=== PATIENT | male | born 1950 | race Caucasian/White ===

== ENCOUNTER 2017-07-29 09:50 | Day surgery (SDC) | payer MEDICARE, OTHER ==
[~2017-07-29] VITALS: Ht 177.8 cm; Wt 141.5 kg
[~2017-07-29 09:50] MED LIST: ALLO300 PO; AMLO5; ASPI325; ASPI81EC PO; ATEN100; ATEN100 PO; CEPH500 PO; CHOL10002 PO; CLIN150 PO; CLIN300 PO; CLON.2; CLON.3 PO; COLC.6 PO; DOCU100 PO; FURO80 PO; GLIP10 PO; GLIP10ER; GLIP10ER PO; HYDCHL25; HYDRA25 PO; INSLI100I SC; INSULANI; INSULANI SC; IRON150C PO; Keflex500 MG PO; METF500; METO2.5 PO; MULVITMINF PO; OMEG1CAP30 PO; PARI1 PO; PHENA200 PO; POTCHL10ER PO; POTCHL20ER PO; QUIN10; RXCLIN PO; SULTRIDS PO; SULTRISS PO; TERA5 PO; VALS80; VALS80 PO; VALTURNA; VALTURNA PO; Vibramycin100 MG PO; [UNRECOGNIZED DRUG - CODE]
[2017-07-29] MEDS ORDERED: METO50ER (10:38)
[2017-07-29] MEDS ORDERED: GABA100 (10:39)
[2017-07-29] MEDS ORDERED: LOSA50 PO (10:39)
[2017-07-29] MEDS ORDERED: Humalog100 UNIT/1 (10:40)
[2017-07-29] MEDS ORDERED: INSULANPEN (10:40)
[2017-07-29] MEDS ORDERED: SPIR25 (10:40)
[2017-07-29] MEDS ORDERED: MEGARED OMEGA-1 EAC1 (10:42)
[2017-07-29] MEDS ORDERED: BIOTIN5000 MC1 (10:42)
[2017-07-29] MEDS ORDERED: COLCRYS0.6 MG (10:42)
[2017-07-29] MEDS ORDERED: VITAMIN D32000 UNIT (10:43)
== END 2017-07-29 12:23 | disposition home or self-care (01) ==
LOC: ORSCSDS 09:50
PROVIDERS: Internal Medicine Gastroenterology
PROC: 0DBH8ZX Excision of Cecum, Via Natural or Artificial Opening Endoscopic, Diagnostic (ICD-10-PCS; principal; 2017-07-29 11:15)
DX: Z12.11 Encounter for screening for malignant neoplasm of colon (principal); D12.0 Benign neoplasm of cecum; K57.30 Diverticulosis of large intestine without perforation or abscess without bleeding; G47.33 Obstructive sleep apnea (adult) (pediatric); E11.42 Type 2 diabetes mellitus with diabetic polyneuropathy; E11.22 Type 2 diabetes mellitus with diabetic chronic kidney disease; N18.1 Chronic kidney disease, stage 1; I12.9 Hypertensive chronic kidney disease with stage 1 through stage 4 chronic kidney disease, or unspecified chronic kidney disease; N40.0 Benign prostatic hyperplasia without lower urinary tract symptoms; Z79.82 Long term (current) use of aspirin; Z79.4 Long term (current) use of insulin; Z79.899 Other long term (current) drug therapy; E66.01 Morbid (severe) obesity due to excess calories; Z68.41 Body mass index [BMI] 40.0-44.9, adult
CPT/HCPCS: 82947; 88305; J7120

== ENCOUNTER → 2019-07-18 | Outpatient (CLI) | payer MEDICARE, OTHER ==
[~2019-07-18] MED LIST changes: +ALLO100 PO; +BIOTIN5000 MC1; +COLCRYS0.6 MG; +FERRACTIV IRON1 EACH PO; +GABA100; +Humalog100 UNIT/1; +INSULANPEN; -IRON150C PO; +LOSA50 PO; +MEGARED OMEGA-1 EAC1; +METO50ER PO; +SPIR25 PO; +VITAMIN D32000 UNIT
[2019-07-18 16:06] LABS: Albumin, Blood 2.6 g/dL (3.4-5.0); Anion Gap 7 mmol/L (6-16); Blood Urea Nitrogen 54 mg/dL (8-24); CO2, Blood 27 mmol/L (21-32); Calcium, Blood 8.7 mg/dL (8.5-10.1); Chloride, Blood 101 mmol/L (98-108); Creatinine, Blood 1.59 mg/dL (0.60-1.20); Glomerular Filtration Rate 46 (60-); Glucose, Blood 267 mg/dL (70-99); Phosphorus, Blood 3.9 mg/dL (2.5-4.9); Potassium, Blood 4.6 mmol/L (3.5-5.5); Sodium, Blood 135 mmol/L (136-145)
== END | disposition home or self-care (01) ==
LOC: LAB SHORT 12:51 → OLS 12:51
PROVIDERS: Internal Medicine Nephrology
DX: I25.118 Atherosclerotic heart disease of native coronary artery with other forms of angina pectoris (principal)
CPT/HCPCS: 80069; 85018

== ENCOUNTER → 2019-07-22 | Outpatient (CLI) | payer MEDICARE, OTHER ==
[2019-07-22 15:51] LABS: Albumin, Blood 3.2 g/dL (3.4-5.0); Anion Gap 10 mmol/L (6-16); Blood Urea Nitrogen 74 mg/dL (8-24); Bun/Creatinine Ratio 35.9 (12.0-20.0); CO2, Blood 25 mmol/L (21-32); Calcium, Blood 9.6 mg/dL (8.5-10.1); Chloride, Blood 95 mmol/L (98-108); Creatinine, Blood 2.06 mg/dL (0.60-1.20); Glomerular Filtration Rate 34 (60-); Glucose, Blood 299 mg/dL (70-99); Phosphorus, Blood 3.7 mg/dL (2.5-4.9); Potassium, Blood 4.3 mmol/L (3.5-5.5); Sodium, Blood 130 mmol/L (136-145)
== END | disposition home or self-care (01) ==
LOC: LAB SHORT 13:25 → LAB 13:25
PROVIDERS: Internal Medicine Nephrology
DX: N18.3 Chronic kidney disease, stage 3 (moderate) (principal)
CPT/HCPCS: 80069

== ENCOUNTER → 2019-07-29 | Outpatient (CLI) | payer MEDICARE, OTHER ==
[2019-07-29 12:25] LABS: Albumin, Blood 3.3 g/dL (3.4-5.0); Anion Gap 9 mmol/L (6-16); Blood Urea Nitrogen 108 mg/dL (8-24); Bun/Creatinine Ratio 48.4 (12.0-20.0); CO2, Blood 28 mmol/L (21-32); Calcium, Blood 9.4 mg/dL (8.5-10.1); Chloride, Blood 96 mmol/L (98-108); Creatinine, Blood 2.23 mg/dL (0.60-1.20); Glomerular Filtration Rate 31 (60-); Glucose, Blood 236 mg/dL (70-99); Magnesium, Blood 2.4 mg/dL (1.6-2.4); Phosphorus, Blood 4.5 mg/dL (2.5-4.9); Potassium, Blood 4.6 mmol/L (3.5-5.5); Sodium, Blood 133 mmol/L (136-145)
== END | disposition home or self-care (01) ==
LOC: LAB 11:00 → LAB SHORT 11:00
PROVIDERS: Internal Medicine Nephrology
DX: N18.3 Chronic kidney disease, stage 3 (moderate) (principal); D63.1 Anemia in chronic kidney disease
CPT/HCPCS: 80069; 83735; 85018

== ENCOUNTER → 2019-08-10 | Outpatient (CLI) | payer MEDICARE, OTHER ==
[2019-08-10 12:17] LABS: Albumin, Blood 3.5 g/dL (3.4-5.0); Albumin/Globulin Ratio 0.9 (0.8-1.8); Bilirubin, Total 0.4 mg/dL (0.1-1.0); Bun/Creatinine Ratio 36.6 (12.0-20.0); Calcium, Blood 9.3 mg/dL (8.5-10.1); Creatinine, Blood 1.64 mg/dL (0.60-1.20); Magnesium, Blood 2.1 mg/dL (1.6-2.4); Potassium, Blood 3.9 mmol/L (3.5-5.5); Total Protein, Blood 7.5 g/dL (6.4-8.2)
== END | disposition home or self-care (01) ==
LOC: LAB 11:50 → LAB SHORT 11:50
PROVIDERS: Internal Medicine Nephrology
DX: Z48.812 Encounter for surgical aftercare following surgery on the circulatory system (principal); I25.10 Atherosclerotic heart disease of native coronary artery without angina pectoris; E11.22 Type 2 diabetes mellitus with diabetic chronic kidney disease; N18.9 Chronic kidney disease, unspecified; Z95.1 Presence of aortocoronary bypass graft; Z79.4 Long term (current) use of insulin
CPT/HCPCS: 80053; 83735; 85018

== ENCOUNTER → 2021-08-03 | Outpatient (CLI) | payer MEDICARE, OTHER ==
[2021-08-03 12:13] LABS: Albumin, Blood 3.8 g/dL (3.4-5.0); Anion Gap 2 mmol/L (6-16); Blood Urea Nitrogen 31 mg/dL (8-24); Bun/Creatinine Ratio 25.4 (12.0-20.0); CO2, Blood 31 mmol/L (21-32); Calcium, Blood 10.4 mg/dL (8.5-10.1); Chloride, Blood 104 mmol/L (98-108); Creatinine, Blood 1.22 mg/dL (0.60-1.20); Glomerular Filtration Rate 63 (60-); Glucose, Blood 106 mg/dL (70-99); Phosphorus, Blood 3.5 mg/dL (2.5-4.9); Potassium, Blood 4.3 mmol/L (3.5-5.5); Sodium, Blood 137 mmol/L (136-145)
[2021-08-03 12:45] LABS: PSA, %Free 15.2 %; PSA, Free 0.792 ng/mL
== END ==
LOC: LAB SHORT 09:13
PROVIDERS: Family Medicine; Internal Medicine Nephrology
DX: E11.21 Type 2 diabetes mellitus with diabetic nephropathy (principal); E11.42 Type 2 diabetes mellitus with diabetic polyneuropathy; E11.39 Type 2 diabetes mellitus with other diabetic ophthalmic complication; E11.22 Type 2 diabetes mellitus with diabetic chronic kidney disease; N18.30 Chronic kidney disease, stage 3 unspecified; D63.1 Anemia in chronic kidney disease; R97.20 Elevated prostate specific antigen [PSA]
CPT/HCPCS: 36415; 80069; 83036; 84153; 84154; 85018

== ENCOUNTER 2022-01-12 06:31 | Emergency (ER) | payer MEDICARE, OTHER ==
[~2022-01-12] VITALS: Ht 177.8 cm; Wt 132.9 kg
[2022-01-12 07:01] LABS: BASOPHILS ABSOLUTE AUTO 0.05 K/mm3 (0.00-0.23); BASOPHILS PERCENT AUTO 1 % (0-2); EOSINOPHILS ABSOLUTE AUTO 0.09 K/mm3 (0.00-0.68); EOSINOPHILS PERCENT AUTO 1 % (0-6); Hematocrit 40.5 % (37.0-53.0); Hemoglobin 13.9 g/dL (13.5-17.5); IMMATURE GRAN ABSOLUTE AUTO 0.06 K/mm3 (0.00-0.10); IMMATURE GRAN PERCENT AUTO 1 % (0-1); LYMPHOCYTES ABSOLUTE AUTO 0.76 K/mm3 (0.84-5.20); LYMPHOCYTES PERCENT AUTO 10 % (21-46); MONOCYTES ABSOLUTE AUTO 0.72 K/mm3 (0.16-1.47); MONOCYTES PERCENT AUTO 10 % (4-13); Mean Corpuscular HGB 30.2 pg (26.0-34.0); Mean Corpuscular HGB Conc 34.3 g/dL (31.5-36.5); Mean Corpuscular Volume 88 fL (80-100); Mean Platelet Volume 12.5 fL (9.1-12.4); NEUTROPHILS PERCENT AUTO 78 % (41-73); Platelet Count 143 K/mm3 (150-400); RDW Coefficient Variation 14.2 % (11.7-14.2); RDW Standard Deviation 45.4 fL (35.1-46.3); Red Blood Cell Count 4.61 M/mm3 (4.30-5.90); White Blood Cell Count 7.48 K/mm3 (4.00-11.30)
[2022-01-12 07:14] LABS: Albumin, Blood 3.5 g/dL (3.4-5.0); Bilirubin, Total 0.5 mg/dL (0.1-1.0); Bun/Creatinine Ratio 17.6 (12.0-20.0); Calcium, Blood 9.8 mg/dL (8.5-10.1); Creatinine, Blood 1.25 mg/dL (0.60-1.20); Globulin, Blood 3.6 g/dL (2.2-4.0); Potassium, Blood 4.3 mmol/L (3.5-5.5); Total Protein, Blood 7.1 g/dL (6.4-8.2)
== END 2022-01-12 09:57 | disposition home or self-care (01) ==
LOC: ER 06:31
PROVIDERS: Student in an Organized Health Care Education/Training Program
DX: R07.89 Other chest pain (principal); I10 Essential (primary) hypertension; E11.9 Type 2 diabetes mellitus without complications; I25.10 Atherosclerotic heart disease of native coronary artery without angina pectoris; Z95.1 Presence of aortocoronary bypass graft; Z79.899 Other long term (current) drug therapy; Z79.82 Long term (current) use of aspirin; Z79.4 Long term (current) use of insulin; Z88.2 Allergy status to sulfonamides; Z88.1 Allergy status to other antibiotic agents
CPT/HCPCS: 71045; 80053; 84484; 85025; 93005; 93010

== ENCOUNTER 2022-10-03 11:21 | Emergency (ER) | payer MEDICARE, OTHER ==
[~2022-10-03] VITALS: Ht 177.8 cm; Wt 129.3 kg
[~2022-10-03 11:21] MED LIST changes: +ASPI325 PO
[2022-10-03] MEDS ORDERED: TAMS.4ER PO (11:46)
[2022-10-03] MEDS ORDERED: DILT180 PO (11:46)
[2022-10-03] MEDS ORDERED: INSULANI SC (11:47)
[2022-10-03] MEDS ORDERED: BUME2 PO (11:47)
[2022-10-03] MEDS ORDERED: ATOR20 PO (11:47)
[2022-10-03 14:00] VITALS: BP 102/80
[2022-10-03] MEDS ORDERED: Norco 5-325 Ta1 EACH PO (14:18)
[2022-10-03] MEDS ORDERED: Robaxin750 MG PO (14:18)
== END 2022-10-03 15:29 | disposition home or self-care (01) ==
LOC: ER 11:21
DX: S39.011A Strain of muscle, fascia and tendon of abdomen, initial encounter (principal); I25.10 Atherosclerotic heart disease of native coronary artery without angina pectoris; I12.9 Hypertensive chronic kidney disease with stage 1 through stage 4 chronic kidney disease, or unspecified chronic kidney disease; E11.22 Type 2 diabetes mellitus with diabetic chronic kidney disease; N18.9 Chronic kidney disease, unspecified; Z88.2 Allergy status to sulfonamides; Z88.1 Allergy status to other antibiotic agents; Z79.82 Long term (current) use of aspirin; Z79.4 Long term (current) use of insulin; Z79.899 Other long term (current) drug therapy; X58.XXXA Exposure to other specified factors, initial encounter
CPT/HCPCS: 73502; 96372; 99283-25; A9270; J1885; J3010

== ENCOUNTER 2023-04-03 14:49 | Emergency (ER) | payer MEDICARE, OTHER ==
[~2023-04-03] VITALS: Ht 177.8 cm; Wt 127.0 kg
[~2023-04-03 14:49] MED LIST changes: +ATOR20 PO; +BUME2 PO; +DILT180 PO; +Norco 5-325 Ta1 EACH PO; +Robaxin750 MG PO; +TAMS.4ER PO
[2023-04-03 15:42] VITALS: BP 113/50
== END 2023-04-03 19:43 | disposition home or self-care (01) ==
LOC: ER 14:49
DX: S93.402A Sprain of unspecified ligament of left ankle, initial encounter (principal); E11.9 Type 2 diabetes mellitus without complications; I10 Essential (primary) hypertension; X50.1XXA Overexertion from prolonged static or awkward postures, initial encounter; Z88.2 Allergy status to sulfonamides; Z88.1 Allergy status to other antibiotic agents; Z88.8 Allergy status to other drugs, medicaments and biological substances; Z79.82 Long term (current) use of aspirin; Z79.899 Other long term (current) drug therapy; Z79.4 Long term (current) use of insulin
CPT/HCPCS: 73610; 73620; 99285-25

== ENCOUNTER 2024-11-18 11:06 | Inpatient (IN) | payer MEDICARE, OTHER ==
[~2024-11-18] VITALS: Ht 177.8 cm; Wt 141.0 kg
[~2024-11-18 11:06] MED LIST changes: -GABA100; +GABA100 PO; +HUMALOG100 UNIT/1; -Humalog100 UNIT/1; +LOSA25 PO; -LOSA50 PO
[2024-11-18] MEDS ORDERED: HYDROmorphone HCl/Pf 1MG SYR IV ONE ×2 (11:45→12:30)
[2024-11-18] MEDS ORDERED: Ondansetron HCl 2 MG / ML 2ML Vial IV ONE (11:45)
[2024-11-18] MEDS ORDERED: CeFAZolin Sodium 1,000 MG in NS 50 ML IV ONE (13:00)
[2024-11-18 13:44] LABS: BASOPHILS ABSOLUTE AUTO 0.07 K/mm3 (0.00-0.23); BASOPHILS PERCENT AUTO 1 % (0-2); EOSINOPHILS ABSOLUTE AUTO 0.13 K/mm3 (0.00-0.68); EOSINOPHILS PERCENT AUTO 2 % (0-6); Hematocrit 35.3 % (37.0-53.0); Hemoglobin 11.9 g/dL (13.5-17.5); IMMATURE GRAN ABSOLUTE AUTO 0.04 K/mm3 (0.00-0.10); IMMATURE GRAN PERCENT AUTO 1 % (0-1); LYMPHOCYTES ABSOLUTE AUTO 0.69 K/mm3 (0.84-5.20); LYMPHOCYTES PERCENT AUTO 8 % (21-46); MONOCYTES ABSOLUTE AUTO 0.88 K/mm3 (0.16-1.47); MONOCYTES PERCENT AUTO 11 % (4-13); Mean Corpuscular HGB Conc 33.7 g/dL (31.5-36.5); Mean Corpuscular Volume 92 fL (80-100); NEUTROPHILS ABSOLUTE AUTO 6.36 K/mm3 (1.96-9.15); NEUTROPHILS PERCENT AUTO 78 % (41-73); NRBC ABSOLUTE 0.00 K/mm3 (0.00-0.02); NRBC Auto 0.0 /100 WBC (0.0-0.2); Platelet Count 143 K/mm3 (150-400); RDW Coefficient Variation 13.4 % (11.7-14.2); RDW Standard Deviation 44.8 fL (35.1-46.3)
[2024-11-18 14:22] LABS: Alanine Aminotransfer (ALT/SGP 18.0 U/L (12-78); Albumin, Blood 3.0 g/dL (3.4-5.0); Albumin/Globulin Ratio 0.9 (0.8-1.8); Anion Gap 6.0 mmol/L (3-11); Aspartate Aminotrans (AST/SGOT 14.0 U/L (12-37); Bilirubin, Total 0.3 mg/dL (0.1-1.0); Blood Urea Nitrogen 19.0 mg/dL (8-24); CO2, Blood 31.0 mmol/L (21-32); Calcium, Blood 9.2 mg/dL (8.5-10.1); Chloride, Blood 102.0 mmol/L (98-108); Creatinine, Blood 1.11 mg/dL (0.60-1.20); Globulin, Blood 3.4 g/dL (2.2-4.0); Glucose, Blood 196.0 mg/dL (70-99); Potassium, Blood 4.3 mmol/L (3.5-5.5); Sodium, Blood 135.0 mmol/L (136-145); Total Protein, Blood 6.4 g/dL (6.4-8.2)
[2024-11-18] MEDS ORDERED: FentaNYL Citrate 50 MCG/ML 2 ML Injection IV PRN (15:10)
[2024-11-18] MEDS ORDERED: Insulin Human Lispro 100 Units/ML 3ML Syringe SC SCH (18:00)
[2024-11-18 18:30] VITALS: BP 153/77
--- NOTE | 2024-11-18 18:42 | NUR ---
ADMIT ER ADMIT WITH OPEN RIGHT ANKLE FX. SPLINTED IN ER. JANEY WRAP APPEARS CDI. RLE ELEVATED ON PILLOWS. ABLE TO WIGGLES TOES. CAP REFILL <3 SECONDS. DENIES N/T. REPORTS PAIN 3/10 AND DENIES NEED FOR MEDICATIONS AT THIS TIME. TELE PLACED SR AT 63 PER CHILD CARE EDUCATION COORDINATOR. VSS. ORIENTED TO ROOM AND CALL LIGHT. WILL REPORT TO LEYLA RN. PT EATING. NPO AT MIDNIGHT FOR SURGERY TOMORROW.
[2024-11-18 19:42] VITALS: BP 134/60
[2024-11-18] MEDS ORDERED: IRON-VITAMIN C1 EAC1 PO (20:17)
[2024-11-18] MEDS ORDERED: OMEGA PO (20:22)
[2024-11-18] MEDS ORDERED: DULO30 PO (20:39)
[2024-11-18] MEDS ORDERED: MAGNESIUM OXID500 MG PO (20:40)
[2024-11-18] MEDS ORDERED: CALCIUM 600-VI1 EAC7 PO (20:43)
[2024-11-18] MEDS ORDERED: PROBIOTIC1 EA13 (20:44)
[2024-11-18] MEDS ORDERED: MIRALAX17 GM PO (20:45)
[2024-11-18] MEDS ORDERED: VITAMIN B-122000 MC1 PO (20:46)
[2024-11-18] MEDS ORDERED: DORZOLAMIDE-TI1 EACH OP (21:21)
[2024-11-18] MEDS ORDERED: OXYC5 PO (21:24)
[2024-11-18 23:17] VITALS: BP 158/68
[2024-11-19] VITALS (15 sets, daily range): BP systolic 131–172; BP diastolic 63–79
[2024-11-19] MEDS ORDERED: CeFAZolin Sodium 2,000 MG in NS 100 ML IV SCH
--- NOTE | 2024-11-19 06:30 | NUR ---
SHIFT SUMMARY PT ADMITTED ON 11/18/24 FOR R OPEN ANKLE FX AFTER FALL. SPLINTED IN ER. JANEY WRAP C/D/I. RLE ELEVATED ON PILLOWS. PT ABLE TO MOVE TOES AND CAP REFILL < 3 SECONDS. PT C/O PAIN THROUGHOUT SHIFT. DR. DAHL NOTIFED. MEDICATED PER EMAR. PT DENIES N/V. PT USES CPAP AT NIGHT. CONTINUOUS BIOX IN PLACE. O2 SAT >90% THROUGHOUT SHIFT. NO TELE EVENTS REPORTED. SINUS RHYTHM RATE 77 PER TREE AND SHRUB WORKER. SURGERY PLANNED TODAY. CARE PLAN ONGOING.
[2024-11-19 07:11] LABS: Anion Gap 5.0 mmol/L (3-11); Blood Urea Nitrogen 23.0 mg/dL (8-24); CO2, Blood 31.0 mmol/L (21-32); Calcium, Blood 9.1 mg/dL (8.5-10.1); Chloride, Blood 103.0 mmol/L (98-108); Creatinine, Blood 1.09 mg/dL (0.60-1.20); Glucose, Blood 161.0 mg/dL (70-99); Potassium, Blood 4.2 mmol/L (3.5-5.5); Sodium, Blood 135.0 mmol/L (136-145)
[2024-11-19] MEDS ORDERED: Insulin Glargine-Yfgn 100 Unit/mL 3 ML SYR SC SCH (09:00)
[2024-11-19] MEDS ORDERED: Colchicine 0.6 MG TAB PO SCH (09:00)
[2024-11-19] MEDS ORDERED: DULoxetine HCL 60 MG Capsule DR PO SCH (09:00)
--- NOTE | 2024-11-19 11:25 | NUR ---
PATIENT TRANSFERED TO [facility] VIA BED ACCOMPANIED BY , AUDI. JANEY WRAP AND SPLINT NOTED TO RLE INTACT.
--- NOTE | 2024-11-19 11:46 | NUR ---
CARE OF PATIENT RESUMED BY GABRIELA FLOREZ RN. REPORT GIVEN.
[2024-11-19] MEDS ORDERED: FentaNYL Citrate 50 MCG/ML 2 ML Injection ONE (12:27)
[2024-11-19] MEDS ORDERED: Midazolam HCl 1MG / ML 2ML Vial ONE (12:27)
[2024-11-19] MEDS ORDERED: Bupivacaine 0.5% HCl 5 MG/ML 30MLVIAL ONE (12:28)
[2024-11-19] MEDS ORDERED: Bupivacaine HCl 0.25% 30 ML Injection ONE (12:28)
[2024-11-19] MEDS ORDERED: Bupivacaine 0.5% W/EPI 1:200000 SDV 30 ML Vial ONE (12:33)
--- NOTE | 2024-11-19 13:06 | NUR ---
1221: Dr. Amanda with Anesthesia at bedside to perform popliteal and adductor nerve blocks in preop. 1238: Timeout complete by RN. Premeds given by Dr. Amanda at bedside. See Anesthesia records. 1243: Adductor nerve block start time. 1246: Adductor nerve block end time. Repositioned pt to side with 3 RN assist for popliteal nerve block. 1300: Popliteal nerve block start time. 1302: Popliteal nerve block end time. VSS throughout. Pt on monitors including: pulse ox, BP, 3 lead EKG. Pt on 3L supplemental O2 via NC. Pt tolerated procedure well.
[2024-11-19] MEDS ORDERED: Ondansetron HCl 2 MG / ML 2ML Vial ONE (13:08)
[2024-11-19] MEDS ORDERED: Rocuronium Bromide 10 MG/ML 5ML Injection IV ONE (13:14)
[2024-11-19] MEDS ORDERED: CeFAZolin Sodium 1000 mg Vial ONE (13:34)
--- NOTE | 2024-11-19 13:50 | NUR ---
11/19/24 1350 Shy Baires 3 GRAMS ANCEF GIVEN BY DR CANAS, SURGEON VERBAL ORDER IN OR NOTED: OPEN AREA X2 TO PTS OPERATIVE SIDE FOOT, AWARE
[2024-11-19] MEDS ORDERED: Sugammadex Sodium 200 MG/2ML SDV (100 MG/ML) ONE (14:16)
--- NOTE | 2024-11-19 15:47 | NUR ---
PT TO ROOM 219 FROM PACU. ALERT TO VERBAL. POST OP VS STARTED AND STABLE. PT ABLE TO WIGGLE TOES. POSTERIOR/STIRRUP? ORTHOGLASS SPLINT IN PLACE. CMS INTACT. WILL CONTINUE TO MONITOR. DENIES PAIN.
[2024-11-19] MEDS ORDERED: Insulin Human Lispro 100 Units/ML 3ML Syringe SC SCH (16:30)
[2024-11-20 00:09] VITALS: BP 178/76
[2024-11-20 04:46] VITALS: BP 160/71
[2024-11-20 05:09] LABS: BASOPHILS ABSOLUTE AUTO 0.05 K/mm3 (0.00-0.23); BASOPHILS PERCENT AUTO 0 % (0-2); EOSINOPHILS ABSOLUTE AUTO 0.03 K/mm3 (0.00-0.68); EOSINOPHILS PERCENT AUTO 0 % (0-6); Hematocrit 32.1 % (37.0-53.0); Hemoglobin 10.5 g/dL (13.5-17.5); IMMATURE GRAN ABSOLUTE AUTO 0.04 K/mm3 (0.00-0.10); IMMATURE GRAN PERCENT AUTO 0 % (0-1); LYMPHOCYTES ABSOLUTE AUTO 0.73 K/mm3 (0.84-5.20); LYMPHOCYTES PERCENT AUTO 6 % (21-46); MONOCYTES ABSOLUTE AUTO 1.78 K/mm3 (0.16-1.47); MONOCYTES PERCENT AUTO 16 % (4-13); Mean Corpuscular HGB Conc 32.7 g/dL (31.5-36.5); Mean Corpuscular Volume 92 fL (80-100); NEUTROPHILS ABSOLUTE AUTO 8.73 K/mm3 (1.96-9.15); NEUTROPHILS PERCENT AUTO 77 % (41-73); NRBC ABSOLUTE 0.00 K/mm3 (0.00-0.02); NRBC Auto 0.0 /100 WBC (0.0-0.2); Platelet Count 131 K/mm3 (150-400); RDW Coefficient Variation 13.4 % (11.7-14.2); RDW Standard Deviation 45.3 fL (35.1-46.3)
--- NOTE | 2024-11-20 05:29 | NUR ---
SHIFT SUMMARY HALEIGH WAS ALERT AND FULLY ORIENTED ON ASSESSMENT. PAIN TO SURGICAL SITE WELL MANAGED, PT PRIMARY PAIN SOURCE IS EXACERBATION OF CHRONIC SHOULDER PAIN PT USING CPAP FOR SLEEP. 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 NO DRAINAGE NOTED TO DRESSING, SENSATION INTACT, PT CAN WIGGLE TOES, CAP REFIL <3 SECONDS. PT DENIES SOB, NAUSEA, OR CHEST PAIN NO ACUTE EVENTS OR NOTED CHANGES TO PT CONDITION TONIGHT. JOEL IN PLACE DRAINING YELLOW URINE TO GRAVITY.
[2024-11-20 05:36] LABS: Anion Gap 8.0 mmol/L (3-11); Blood Urea Nitrogen 20.0 mg/dL (8-24); CO2, Blood 28.0 mmol/L (21-32); Calcium, Blood 8.7 mg/dL (8.5-10.1); Chloride, Blood 102.0 mmol/L (98-108); Creatinine, Blood 1.08 mg/dL (0.60-1.20); Glucose, Blood 151.0 mg/dL (70-99); Potassium, Blood 4.4 mmol/L (3.5-5.5); Sodium, Blood 134.0 mmol/L (136-145)
[2024-11-20 07:04] VITALS: BP 138/66
[2024-11-20] MEDS ORDERED: OXAYDO5 M1 PO (07:09)
[2024-11-20] MEDS ORDERED: Aspir 8181 MG PO (12:14)
[2024-11-20] MEDS ORDERED: BUME1 PO ×2 (12:17→12:19)
[2024-11-20 14:18] VITALS: BP 132/57
--- NOTE | 2024-11-20 18:04 | NUR ---
SHIFT SUMMARY PAINFUL TODAY. UNABLE TO WORK WITH PT TODAY. PRESENTLY IN IMAGING TO R/O CERVICAL/R SHOULDER INJURY.
[2024-11-20 19:46] VITALS: BP 169/72
[2024-11-20 23:02] VITALS: BP 130/68
[2024-11-21] VITALS (7 sets, daily range): BP systolic 96–142; BP diastolic 55–75
--- NOTE | 2024-11-21 04:07 | NUR ---
SHIFT SUMMARY HALEIGH WAS ALERT AND FULLY ORIENTED ON ASSESSMENT. PT PAIN WELL MANAGED THIS SHIFT. PT STATES SENSATION AT BASELINE, CAP REFIL <3 SECONDS TO TOES. PT UNABLE TO WIGGLE TOES, STATES THAT THIS IS CHALLENGING FOR HIM AT BASELINE. CALL FROM TELE TONIGHT, PT HAD A PVC AND CONVERTED TO A-FLUTTER. HOSPITALIST CONTACTED, EKG ORDERED. PT STILL IN A-FLUTTER. PT ASYMPTOMATIC. PT DENIES SOB, NAUSEA OR CHEST PAIN. NO OTHER EVENTS NOTED THIS SHIFT.
[2024-11-21 05:15] LABS: BASOPHILS ABSOLUTE AUTO 0.04 K/mm3 (0.00-0.23); BASOPHILS PERCENT AUTO 0 % (0-2); EOSINOPHILS ABSOLUTE AUTO 0.13 K/mm3 (0.00-0.68); EOSINOPHILS PERCENT AUTO 1 % (0-6); Hematocrit 31.9 % (37.0-53.0); Hemoglobin 10.6 g/dL (13.5-17.5); IMMATURE GRAN ABSOLUTE AUTO 0.04 K/mm3 (0.00-0.10); IMMATURE GRAN PERCENT AUTO 0 % (0-1); LYMPHOCYTES ABSOLUTE AUTO 0.87 K/mm3 (0.84-5.20); LYMPHOCYTES PERCENT AUTO 8 % (21-46); MONOCYTES ABSOLUTE AUTO 1.59 K/mm3 (0.16-1.47); MONOCYTES PERCENT AUTO 15 % (4-13); Mean Corpuscular HGB Conc 33.2 g/dL (31.5-36.5); Mean Corpuscular Volume 92 fL (80-100); NEUTROPHILS ABSOLUTE AUTO 7.95 K/mm3 (1.96-9.15); NEUTROPHILS PERCENT AUTO 75 % (41-73); NRBC ABSOLUTE 0.00 K/mm3 (0.00-0.02); NRBC Auto 0.0 /100 WBC (0.0-0.2); Platelet Count 129 K/mm3 (150-400); RDW Coefficient Variation 13.3 % (11.7-14.2); RDW Standard Deviation 45.1 fL (35.1-46.3)
[2024-11-21 05:50] LABS: Anion Gap 6.0 mmol/L (3-11); Blood Urea Nitrogen 27.0 mg/dL (8-24); CO2, Blood 31.0 mmol/L (21-32); Calcium, Blood 8.8 mg/dL (8.5-10.1); Chloride, Blood 101.0 mmol/L (98-108); Creatinine, Blood 1.29 mg/dL (0.60-1.20); Glucose, Blood 155.0 mg/dL (70-99); Potassium, Blood 4.5 mmol/L (3.5-5.5); Sodium, Blood 133.0 mmol/L (136-145)
[2024-11-21] MEDS ORDERED: NS 250 ML IV PRN (07:55)
--- NOTE | 2024-11-21 09:00 | NUR ---
Pt laying in bed wakes easily a/ox4, pleasant and cooperative with care, follows commands well, reports pain is ok when not moving, lungs are clear t/o, resp even and unlabored, on 2 liters at this time, it was shut off but when he dozed he dropped to 87%, no cough, hrr, tele in place running sr, he converted to sr from aflutter at 0715 this am, vs stable, afebrile, piv to lac site is clear and patent, btx4, abd flat soft nontender, voids via shin cath at this time, urine is clear yellow, no bm since last , the , skin has dressing to r ft/ankle, otherwise c/w/d, unable to lift right arm states his shoulder is too painful, is bedrest at this time, evelin, call light in reach.
[2024-11-21] MEDS ORDERED: Insulin Glargine-Yfgn 100 Unit/mL 3 ML SYR SC SCH (09:40)
[2024-11-21] MEDS ORDERED: Polyethylene Glycol 3350 17 gm PO SCH (10:10)
--- NOTE | 2024-11-21 18:20 | NUR ---
pt has been painful today, mechelle his right shoulder, spouce states he fell on it in the shower, it is swollen, hand is swollen, can't stand it to be touched, PT worked with him and expressed concern about not being able to move arm at all, notified Dr. Noble, recieved order for CT of right shoulder, notified pt and family, no further changes this shift. call light in reach.
[2024-11-22] VITALS (8 sets, daily range): BP systolic 141–207; BP diastolic 64–93
[2024-11-22] MEDS ORDERED: Heparin Sodium,Porcine 5,000 UNIT/0.5 ML SDV SC SCH
--- NOTE | 2024-11-22 05:17 | NUR ---
NOC SUMMARY- PT CONTINUES TO C/O RIGHT SHOULDER PAIN. PT REPORTS HE IS ABLE TO MOVE R ARM MORE THIS AM. PT DOES HAVE INCREASED WEAKNESS THROUGHOUT. PT DRESSING IS C/D/I. PT JOEL DRAINING TO GRAVITY. BOWEL CARE MEDS GIVEN ORDERED. PT USING CPAP TOLERATED. PT STATES HIS FACE GETS TO HOT. PT PLCED ON NC @ 2LPM. SPO2 > 90%. CALL LIGHT IN REACH.
[2024-11-22 06:42] LABS: BASOPHILS ABSOLUTE AUTO 0.05 K/mm3 (0.00-0.23); BASOPHILS PERCENT AUTO 1 % (0-2); EOSINOPHILS ABSOLUTE AUTO 0.24 K/mm3 (0.00-0.68); EOSINOPHILS PERCENT AUTO 3 % (0-6); Hematocrit 30.7 % (37.0-53.0); Hemoglobin 10.1 g/dL (13.5-17.5); IMMATURE GRAN ABSOLUTE AUTO 0.05 K/mm3 (0.00-0.10); IMMATURE GRAN PERCENT AUTO 1 % (0-1); LYMPHOCYTES ABSOLUTE AUTO 0.66 K/mm3 (0.84-5.20); LYMPHOCYTES PERCENT AUTO 7 % (21-46); MONOCYTES ABSOLUTE AUTO 1.22 K/mm3 (0.16-1.47); MONOCYTES PERCENT AUTO 13 % (4-13); Mean Corpuscular HGB Conc 32.9 g/dL (31.5-36.5); Mean Corpuscular Volume 92 fL (80-100); NEUTROPHILS ABSOLUTE AUTO 6.89 K/mm3 (1.96-9.15); NEUTROPHILS PERCENT AUTO 76 % (41-73); NRBC ABSOLUTE 0.00 K/mm3 (0.00-0.02); NRBC Auto 0.0 /100 WBC (0.0-0.2); Platelet Count 148 K/mm3 (150-400); RDW Coefficient Variation 13.3 % (11.7-14.2); RDW Standard Deviation 45.0 fL (35.1-46.3)
[2024-11-22 07:02] LABS: Anion Gap 9.0 mmol/L (3-11); Blood Urea Nitrogen 32.0 mg/dL (8-24); CO2, Blood 28.0 mmol/L (21-32); Calcium, Blood 8.9 mg/dL (8.5-10.1); Chloride, Blood 102.0 mmol/L (98-108); Creatinine, Blood 1.18 mg/dL (0.60-1.20); Glucose, Blood 182.0 mg/dL (70-99); Potassium, Blood 4.5 mmol/L (3.5-5.5); Sodium, Blood 134.0 mmol/L (136-145)
[2024-11-22] MEDS ORDERED: Dorzolamide/Timolol Opth Soln 10 ML RIGHTEYE SCH (09:00)
[2024-11-22] MEDS ORDERED: Insulin Glargine-Yfgn 100 Unit/mL 3 ML SYR SC SCH (09:00)
[2024-11-22] MEDS ORDERED: Timolol 0.5% Opth Soln 5 ML RIGHTEYE SCH (09:00)
[2024-11-22] MEDS ORDERED: HydrALAZINE HCl 20 MG / ML 1ML Vial IV PRN ×2 (15:40)
--- NOTE | 2024-11-22 18:27 | NUR ---
SHIFT SUMMARY PATIENT IS POD3 R ANKLE ORIF. SLPINT AND JANEY WRAP INTACT. ON TELE WITH SR IN 50S, BP ELEVATED THIS EVENING AND HYDRALAZINE ORDERED. PATIENT IS CURRENT MAX 2-3 FOR REPOSITIONING AND WILL NEED LIFT FOR TRANSFERS. ONLY EOB WITH PT THIS AFTERNOON. NO BM THIS SHIFT, REPOSITIONED AND TRIED BEDPAN, BED BATH AND CATH CARE THIS AFTERNOON. JOEL TO GRAVITY DRAINING CLEAR YELLOW URINE. BP 149/80. USES CPAP WITH O2 BLEED IN AT NIGHT. CALL LIGHT IN REACH.
[2024-11-23] VITALS (7 sets, daily range): BP systolic 129–165; BP diastolic 59–98
--- NOTE | 2024-11-23 05:48 | NUR ---
NOC SUMMARY- PAIN MANAGED WELL. PT DRESSING IS C/D/I. PT REPORTS RIGHT SHOULDER AND NECK DISCOMFORT. PT TOLERATING PO FLUIDS. JOEL DRAINING TO GRAVITY. PT REPOSITIONED TOLERATED. BOWEL CARE GIVEN ORDERED. PT WEARS CPAP OFF AND ON. PT TOLERATES NC @ 2LPM WELL WITH SPO2 >90%. PT HAS BEEN ABLE TO REST COMFORTABLY. CALL LIGHT IN REACH.
[2024-11-23 10:51] LABS: BASOPHILS ABSOLUTE AUTO 0.04 K/mm3 (0.00-0.23); BASOPHILS PERCENT AUTO 1 % (0-2); EOSINOPHILS ABSOLUTE AUTO 0.23 K/mm3 (0.00-0.68); EOSINOPHILS PERCENT AUTO 3 % (0-6); Hematocrit 32.0 % (37.0-53.0); Hemoglobin 10.7 g/dL (13.5-17.5); IMMATURE GRAN ABSOLUTE AUTO 0.07 K/mm3 (0.00-0.10); IMMATURE GRAN PERCENT AUTO 1 % (0-1); LYMPHOCYTES ABSOLUTE AUTO 0.56 K/mm3 (0.84-5.20); LYMPHOCYTES PERCENT AUTO 7 % (21-46); MONOCYTES ABSOLUTE AUTO 0.95 K/mm3 (0.16-1.47); MONOCYTES PERCENT AUTO 12 % (4-13); Mean Corpuscular HGB Conc 33.4 g/dL (31.5-36.5); Mean Corpuscular Volume 91 fL (80-100); NEUTROPHILS ABSOLUTE AUTO 6.06 K/mm3 (1.96-9.15); NEUTROPHILS PERCENT AUTO 77 % (41-73); NRBC ABSOLUTE 0.00 K/mm3 (0.00-0.02); NRBC Auto 0.0 /100 WBC (0.0-0.2); Platelet Count 162 K/mm3 (150-400); RDW Coefficient Variation 13.3 % (11.7-14.2); RDW Standard Deviation 44.5 fL (35.1-46.3)
[2024-11-23 11:09] LABS: Anion Gap 8.0 mmol/L (3-11); Blood Urea Nitrogen 28.0 mg/dL (8-24); CO2, Blood 28.0 mmol/L (21-32); Calcium, Blood 9.1 mg/dL (8.5-10.1); Chloride, Blood 102.0 mmol/L (98-108); Creatinine, Blood 0.96 mg/dL (0.60-1.20); Glucose, Blood 202.0 mg/dL (70-99); Potassium, Blood 4.3 mmol/L (3.5-5.5); Sodium, Blood 134.0 mmol/L (136-145)
[2024-11-24] VITALS (7 sets, daily range): BP systolic 149–176; BP diastolic 72–82
--- NOTE | 2024-11-24 05:24 | NUR ---
SHIFT SUMMARY POD 5 R ANKLE ORIF. NO ACUTE CHANGES OVERNIGHT. VSS, CPAP IN USE WHILE ASLEEP, TELE - SINUS ZEINA. JOEL DRAINING YELLOW URINE TO GRAVITY. PASSING FLATUS, NO BM. JANEY WRAP/SPLINT TO RLE C/D/I. NO AMB OVERNIGHT. 3 PERSON ASSIST R/T REPOSITIONING IN BED. PT REPORTS PAIN TOLERABLE, MEDICATED PER EMAR. ANTICIPATED D/C TO SNF. CALL LIGHT IN REACH, BED ALARM IN USE, WILL REPORT TO DAY RN.
--- NOTE | 2024-11-24 11:31 | NUR ---
"Spiritual Care | Family referral Pt. is awake and welcomes my visit. Pt. is pleasant. Spouse is at bedside. Faciliatted a life review and listened with interest and empathy. Pt. did verbalize an inquiry of this baker biscuit's ken background. Pt. displayed evidence of having been encouraged from the visit and verbalized gratitude to this baker biscuit. Will remain available to the Pt. and family."
[2024-11-24] MEDS ORDERED: Magnesium Hydroxide Conc 10 ML UDC PO PRN (11:55)
--- NOTE | 2024-11-24 14:14 | NUR ---
PT ADMITS TO STRAIGHT CATH HISTORY AT HOME BY SPOUSE BEING FOR CONVENIENCE. AGREES TO ALLOW CATHETER TO BE DC'D "THIS EVENING". PER PT'S UROLOGIST DR SERVIN, PT IS TO "BE EMPTIED OUT" AT LEAST ONCE PER DAY. PER PT'S WISHES, JOEL WILL STAY UNTIL THIS AFTERNOON WHEN HE WILL ALLOW ME TO TAKE IT OUT.
--- NOTE | 2024-11-24 18:20 | NUR ---
SHIFT SUMMARY M[facility] HAIDER TODAY. PLAN FOR TRANSFER TO REHAB TOMORROW. DULCOLAX SUPPOSITORY GIVEN. PASSING LOTS OF FLATUS, BUT NO BM YET. WILL CONTINUE TO MONITOR.
--- NOTE | 2024-11-24 18:22 | NUR ---
JOEL CATHETER DC'D AT 1800. PT TOLERATED WELL. AWAITING VOID.
[2024-11-25 03:50] VITALS: BP 178/72
--- NOTE | 2024-11-25 06:36 | NUR ---
SHIFT SUMMARY POD 6 R ANKLE ORIF. NO ACUTE CHANGES OVERNIGHT. VSS, CPAP IN USE WHILE ASLEEP, TELE - SINUS ZEINA. STRAIGHT CATH PRN R/T RETENTION (BASELINE). PASSING FLATUS, BM. JANEY WRAP/SPLINT TO RLE C/D/I. NO AMB OVERNIGHT. 3 PERSON ASSIST R/T REPOSITIONING IN BED. PT REPORTS PAIN TOLERABLE, MEDICATED PER EMAR. ANTICIPATED D/C TO SNF. CALL LIGHT IN REACH, BED ALARM IN USE, WILL REPORT TO DAY RN.
[2024-11-25 07:54] VITALS: BP 158/55
[2024-11-25] MEDS ORDERED: Insulin Glargine,Hum.Rec.Anlog 100 UNIT/ML 3MLSYR SC SCH (09:30)
[2024-11-25 15:05] VITALS: BP 139/75
--- NOTE | 2024-11-25 16:18 | NUR ---
REPORT TO [facility] T[facility] OUT, STRAIGHT CATH THIS AFTERNOON, 1000 OUT. PATIENT WORKS WITH THERAPY, DRESSED IN SHORTS AND ANNA. AWAITING TRANFER TO SNF LIFT TO CHAIR.
== END 2024-11-25 17:00 | DRG 494 ==
LOC: ER 11:06 → SURS 11:07
PROVIDERS: Orthopaedic Surgery; Physician Assistant; ADMIT Internal Medicine
PROC: 5A09357 Assistance with Respiratory Ventilation, Less than 24 Consecutive Hours, Continuous Positive Airway Pressure (ICD-10-PCS; 2024-11-18)
PROC: 0QSJ04Z Reposition Right Fibula with Internal Fixation Device, Open Approach (ICD-10-PCS; principal; 2024-11-19 12:30)
DX: S82.61XB Displaced fracture of lateral malleolus of right fibula, initial encounter for open fracture type I or II (principal); I25.10 Atherosclerotic heart disease of native coronary artery without angina pectoris; I12.9 Hypertensive chronic kidney disease with stage 1 through stage 4 chronic kidney disease, or unspecified chronic kidney disease; N18.31 Chronic kidney disease, stage 3a; E11.22 Type 2 diabetes mellitus with diabetic chronic kidney disease; E11.42 Type 2 diabetes mellitus with diabetic polyneuropathy; M10.9 Gout, unspecified; E78.5 Hyperlipidemia, unspecified; F32.A Depression, unspecified; Z95.1 Presence of aortocoronary bypass graft; Z90.89 Acquired absence of other organs; Z98.84 Bariatric surgery status; Z79.4 Long term (current) use of insulin; Z79.82 Long term (current) use of aspirin; Z79.84 Long term (current) use of oral hypoglycemic drugs; Z79.899 Other long term (current) drug therapy; Z88.1 Allergy status to other antibiotic agents; Z88.2 Allergy status to sulfonamides; Z88.8 Allergy status to other drugs, medicaments and biological substances; W18.2XXA Fall in (into) shower or empty bathtub, initial encounter
CPT/HCPCS: 27762; 36415; 51701; 72125; 73030; 73200; 73600; 73610; 80048; 80053; 82947; 85025; 94762; 96365-59; 96375; 96375-59; 96376; 97110; 97112; 97163; 97166; 97530; 97535; 99285-25; A9270; C1713; G0378; J0360; J0690; J1171; J1644; J1815; J2250; J2405; J2704; J3010; J7120

== ENCOUNTER → 2025-03-08 | Outpatient (CLI) | payer MEDICARE, OTHER ==
[~2025-03-08] MED LIST changes: +Aspir 8181 MG PO; +BUME1 PO; +CALCIUM 600-VI1 EAC7 PO; +DORZOLAMIDE-TI1 EACH OP; +DULO30 PO; +IRON-VITAMIN C1 EAC1 PO; +MAGNESIUM OXID500 MG PO; +MIRALAX17 GM PO; +OMEGA PO; +OXAYDO5 M1 PO; +OXYC5 PO; +PROBIOTIC1 EA13; +VITAMIN B-122000 MC1 PO
[2025-03-08 15:13] LABS: Albumin, Blood 3.1 g/dL (3.4-5.0); Anion Gap 8 mmol/L (3-11); Blood Urea Nitrogen 28 mg/dL (8-24); CO2, Blood 32 mmol/L (21-32); Calcium, Blood 10.1 mg/dL (8.5-10.1); Chloride, Blood 103 mmol/L (98-108); Creatinine, Blood 1.13 mg/dL (0.60-1.20); Glucose, Blood 127 mg/dL (70-99); Phosphorus, Blood 3.3 mg/dL (2.5-4.9); Potassium, Blood 3.8 mmol/L (3.5-5.5); Sodium, Blood 139 mmol/L (136-145)
== END ==
LOC: LAB 14:47 → LAB SHORT 14:47
PROVIDERS: Family Medicine
DX: R73.9 Hyperglycemia, unspecified (principal); D75.1 Secondary polycythemia; E29.1 Testicular hypofunction; E55.9 Vitamin D deficiency, unspecified
CPT/HCPCS: 80069; 83036; 85018

== ENCOUNTER → 2025-03-16 | Outpatient (CLI) | payer MEDICARE, OTHER ==
[2025-03-16 15:57] LABS: Bilirubin, Urine Neg (Neg); Glucose Qualitative, Urine Neg (Neg); Ketones, Urine Neg (Neg); Leukocyte Esterase, Urine 3+ (Neg); Protein, Urine 1+ (Neg); Specific Gravity, Urine 1.015 (1.003-1.022); Urobilinogen, Urine NORM (Normal)
[2025-03-16 16:09] LABS: Color, Urine Pale Yellow (P-Yellow)
[2025-03-16 16:10] LABS: White Blood Cells, Urine TNTC /hpf (0-5)
== END | disposition home or self-care (01) ==
LOC: LAB 14:55 → LAB SHORT 14:55
PROVIDERS: Family Medicine
DX: N39.0 Urinary tract infection, site not specified (principal)
CPT/HCPCS: 81001; 87077; 87086; 87186